=== PATIENT | male | born 1980 | race Caucasian/White ===

== ENCOUNTER 2024-10-24 19:54 | Emergency (ER) | payer BC, SELFPAY ==
--- NOTE | ~2024-10-24 | XR_ITS ---
EXAMINATION: XR chest 2V DATE: 10/24/2024 20:30 INDICATION: Pneumonia. TECHNIQUE: Frontal and lateral views of the chest were obtained. COMPARISON: None. FINDINGS: There is no pneumonia, pleural effusion, or pneumothorax. The heart size is normal. IMPRESSION: 1. No acute cardiopulmonary disease. Reviewed, dictated and finalized at location A. 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
--- NOTE | 2024-10-24 19:55 | ECG_ITS ---
Test Date: 2024-10-24 20:14:03 Measurements Intervals [place] Rate: 90 P: 49 [place]: 164 QRS: 14 QRSD: 79 T: 51 QT: 348 QTc: 428 Interpretive Statements SINUS RHYTHM No previous ECG available for comparison Electronically Signed On 10-25-2024 15:53:43 LDR NURSE by Manish Queen M.D.
[2024-10-24 20:01] VITALS: BP 118/75; PULSE 74; RESP 20; TEMP 37.2; O2SAT 98
[2024-10-24 21:03] LABS: Influenza A QL RT-PCR Negative (Negative); Influenza B QL RT-PCR Negative (Negative); RSV RNA, RT-PCR Negative (Negative); SARS-CoV-2 RNA PCR Negative (Negative)
[2024-10-24 23:23] VITALS: BP 107/80; PULSE 67; PULSE 77; RESP 18; O2SAT 96
[2024-10-25 00:48] VITALS: BP 102/78; PULSE 75; RESP 17; O2SAT 95
--- OUTSIDE RECORDS SUMMARY | 2024-10-25 01:02 | XMS_ITS ---
Author Organization [facility] Address [facility] [address] [facility] [address] [place] [address] Care Team Providers Care Installer Molding And Trim Name Role Phone [email or web address] Unavailable [phone] Medications Medication SIG (Take, Route, Fr equency, Duration) Notes Start Date End Date Status Sertraline HCl 100 MG 0.5 tablet once a day for 7 days, 1 tablet once a day for 7 days, 1.5 tablets once a day for 7 days, 2 tablets once a day for 7 days Oral for 28 days Active Social History Sex Assigned At : Social History Observation Description Sex Assigned At Male Encounters Encounter Location Date Provider Diagnosis [facility] [place] [id number] [facility] [address] [address] 10/05/2024 [facility] MIRNA (generalized anxiety disorder) F41.1 Assessments Encounter Date Diagnosis (ICD Code) Assessment Notes Treatment Notes Treatment Clinical Notes Section Notes 10/05/2024 MIRNA (generalized anxiety disorder) (ICD-10 - F41.1) Plan Of Treatment Medication Medication Name Sig Start Date Stop Date Notes Sertraline HCl 100 MG 0.5 tablet once a day for 7 days, 1 tablet once a day for 7 days, 1.5 tablets once a day for 7 days, 2 tablets once a day for 7 days Oral for 28 days Next Appt Details Provider Name:Ofelia miller, 11/22/2024 09:00:00 AM, 0054 [facility] [address], [place], [address], Progress Notes * LYLY VERONICA:1980 (44 yo M)Acc No.[id number]:10/05/2024 Patient:CHILO THAPA :1980???Age:44 Y???Sex:Male Address:[facility] [address], [place], [address] * Refills? Refill Sertraline HCl Tablet, 100 MG, Oral, 35 tablet, 0.5 tablet once a day for 7 days, 1 tablet once a day for 7 days, 1.5 tablets once a day for 7 days, 2 tablets once a day for 7 days, 28 days, Refills=0 * true * Date:? Generated for Nat buckley/Sharron/Sueitting on:?10/25/2024 01:02 AM PARALEGAL LEGAL SECRETARY
--- OUTSIDE RECORDS SUMMARY | 2024-10-25 01:03 | XMS_ITS | Data Portability ---
Author Organization [facility] SUZYJeni Address [address] [place] [address] Assessment No assessment recorded. Plan of Treatment Reminders Order Date Submit Date Provider Last Modified By Organization Details Last Modified Time Details Appointments None recorded. Lab lipid panel, serum 2018 019 [facility], [address] [place] [address], [address], [place], [address], 9 06:08:08 CMP, serum or plasma 2018 019 [facility], [address] [place] [address], [address], [place], [address], 9 06:08:08 TSH, ultra-sens itive, serum 2018 019 [facility], [address] [place] [address], [address], [place], [address], 9 06:08:09 CBC w/ auto diff 2018 019 [facility], [address] [place] [address], [address], [place], [address], 9 06:08:07 Referral None recorded. Procedures None recorded. Surgeries None recorded. Imaging None recorded. Medication Orders sertraline 25 mg tablet 2018 019 debi 2 Not available 9 10:00:11 hydroxyzin e HCl 50 mg tablet 2018 019 INTERFACE Not available 9 11:56:28 sertraline 50 mg tablet 2018 019 [id number], [address] [place], [address], 9 10:07:23 hydroxyzin e HCl 50 mg tablet 2018 019 [facility], [address] [place], [address], 9 10:07:23 hydroxyzin e HCl 50 mg tablet 2019 020 INTERFACE [facility] [address] [place] [place], [address], 0 15:03:36 sertraline 50 mg tablet 2019 020 INTERFACE [facility] [address] [place], [address], 0 19:03:39 Patient TargetsNo targets recorded. Patient InstructionsNo instructions recorded. Reason for Referral None Reported. Results Created Date Observation Date Name Description Value Unit Range Abnormal Flag Note LastModifiedBy Organization Detail LastModifiedTime 11/01/19 19 11/01/2018 CBC w/ auto diff WBC 6.0 x10e3 /uL 3.4-10 .8 Not Available [facility] ([facility]) [address] [facility], [place], [address], 11/02/2018 06:08:07 11/01/19 19 11/01/2018 CBC w/ auto diff RBC 5.42 x10e6 /uL 4.14-5 .80 Not Available [facility] ([facility]) [address] [facility], [place], [address], 11/02/2018 06:08:07 11/01/19 19 11/01/2018 CBC w/ auto diff hemoglobin 17.1 g/dL 13.0-1 7.7 Not Available [facility] ([facility]) [address] [facility], [place], [address], 11/02/2018 06:08:07 11/01/19 19 11/01/2018 CBC w/ auto diff hematocrit 48.0 % 37.5-5 1.0 Not Available [facility] ([facility]) [address] [facility], [place], [address], 11/02/2018 06:08:07 11/01/19 19 11/01/2018 CBC w/ auto diff MCV 89 fL 79-97 Not Available [facility] ([facility]) [address] [facility], [place], [address], 11/02/2018 06:08:07 11/01/19 19 11/01/2018 CBC w/ auto diff MCH 31.5 pg 26.6-3 3.0 Not Available [facility] ([facility]) [address] [facility], [place], [address], 11/02/2018 06:08:07 11/01/19 19 11/01/2018 CBC w/ auto diff MCHC 35.6 g/dL 31.5-3 5.7 Not Available [facility] ([facility]) [address] [facility], [place], [address], 11/02/2018 06:08:07 11/01/19 19 11/01/2018 CBC w/ auto diff RDW 13.6 % 12.3-1 5.4 Not Available [facility] ([facility]) [address] [facility], [place], [address], 11/02/2018 06:08:07 11/01/1911/01/2018 CBC w/ auto diff platelets 339 x10e3 /uL 150-37 9 Not Available [facility] ([facility]) [address] [facility], [place], [address], 11/02/2018 06:08:07 11/01/19 19 11/01/2018 CBC w/ auto diff neutrophils 66 % not estab. Not Available [facility] ([facility]) [address] [facility], [place], [address], 11/02/2018 06:08:07 11/01/19 19 11/01/2018 CBC w/ auto diff lymphs 21 % not estab. Not Available [facility] ([facility]) [address] [facility], [place], [address], 11/02/2018 06:08:07 11/01/19 19 11/01/2018 CBC w/ auto diff monocytes 11 % not estab. Not Available [facility] ([facility]) [address] [facility] [place], [address], 11/02/2018 06:08:07 11/01/19 19 11/01/2018 CBC w/ auto diff eos 1 % not estab. Not Available [facility] ([facility]) [address] [facility], [place], [address], 11/02/2018 06:08:07 11/01/19 19 11/01/2018 CBC w/ auto diff basos 1 % not estab. Not Available [facility] ([facility]) [address] [facility], [place], [address], 11/02/2018 06:08:07 11/01/1911/01/2018 CBC w/ auto diff immature cells DIRECTOR FIXED INCOME Not Available [facility] ([facility]) [address] [place], [address], 11/02/2018 06:08:07 11/01/1911/01/2018 CBC w/ auto diff neutrophils (absolute) 3.9 x10e3 /uL 1.4-7. 0 Not Available [facility] ([facility]) [address] [place], [address], 11/02/2018 06:08:07 11/01/19 19 11/01/2018 CBC w/ auto diff lymphs (absolute) 1.3 x10e3 /uL 0.7-3. 1 Not Available [facility] ([facility]) [address] [facility], [place], [address], 11/02/2018 06:08:07 11/01/1911/01/2018 CBC w/ auto diff monocytes(ab solute) 0.7 x10e3 /uL 0.1-0. 9 Not Available [facility] ([facility]) [address] [facility], [place], [address], 11/02/2018 06:08:07 11/01/1911/01/2018 CBC w/ auto diff eos (absolute) 0.1 x10e3 /uL 0.0-0. 4 Not Available [facility] ([facility]) [address] [facility], [place], [address], 11/02/2018 06:08:07 11/01/1911/01/2018 CBC w/ auto diff baso (absolute) 0.0 x10e3 /uL 0.0-0. 2 Not Available [facility] ([facility]) [address] [facility], [place], [address], 11/02/2018 06:08:07 11/01/1911/01/2018 CBC w/ auto diff immature granulocytes 0 % not estab. Not Available [facility] ([facility]) [address] [facility], [place], [address], 11/02/2018 06:08:07 11/01/1911/01/2018 CBC w/ auto diff immature grans (abs) 0.0 x10e3 /uL 0.0-0. 1 Not Available [facility] ([facility]) [address] [facility] [place], [address], 11/02/2018 06:08:07 11/01/1911/01/2018 CBC w/ auto diff NRBC DIRECTOR FIXED INCOME Not Available [facility] ([facility]) [address] [facility], [place], [address], 11/02/2018 06:08:07 11/01/1911/01/2018 CBC w/ auto diff hematology comments: DIRECTOR FIXED INCOME Not Available [facility] ([facility]) [address] [place], [address], 11/02/2018 06:08:07 11/01/1911/01/2018 CMP, serum or plasm a calcium 9.7 mg/dL 8.7-10 .2 Not Available [facility] ([facility]) [address] [facility] [place], [address], 11/02/2018 06:08:08 11/01/1911/02/2018 CMP, serum or plasm a glucose 108 mg/dL 65-99 above high normal Not Available [facility] ([facility]) [address] [facility] [place], [address], 11/02/2018 06:08:08 11/01/1911/02/2018 CMP, serum or plasm a BUN 16 mg/dL 6-24 Not Available [facility] ([facility]) [address] [facility] [place], [address], 11/02/2018 06:08:08 11/01/1911/02/2018 CMP, serum or plasm a creatinine 1.33 mg/dL 0.76-1 .27 above high normal Not Available [facility] ([facility]) [address] [facility] [place], [address], 11/02/2018 06:08:08 11/01/1911/02/2018 CMP, serum or plasm a eGFR if nonafricn AM 66 mL/mi n/1.7 3 >59 Not Available [facility] ([facility]) [address] [facility] [place], [address], 11/02/2018 06:08:08 11/01/1911/02/2018 CMP, serum or plasm a eGFR if africn AM 77 mL/mi n/1.7 3 >59 Not Available [facility] ([facility]) [address] [place], [address], 11/02/2018 06:08:08 11/01/1911/02/2018 CMP, serum or plasm a BUN/creatini ne ratio 12 9-20 Not Available [facility] ([facility]) [address] [facility] [place], [address], 11/02/2018 06:08:08 11/01/1911/02/2018 CMP, serum or plasm a sodium 140 mmol/ L 134-14 4 Not Available [facility] ([facility]) [address] [facility] [place], [address], 11/02/2018 06:08:08 11/01/1911/02/2018 CMP, serum or plasm a potassium 5.0 mmol/ L 3.5-5. 2 Not Available [facility] ([facility]) [address] [place], [address], 11/02/2018 06:08:08 11/01/1911/02/2018 CMP, serum or plasm a chloride 101 mmol/ L 96-106 Not Available [facility] ([facility]) [address] [facility] [place], [address], 11/02/2018 06:08:08 11/01/1911/02/2018 CMP, serum or plasm a carbon dioxide, total 26 mmol/ L 20-29 Not Available [facility] ([facility]) [address] [place], [address], 11/02/2018 06:08:08 11/01/1911/02/2018 CMP, serum or plasm a protein, total 7.2 g/dL 6.0-8. 5 Not Available [facility] ([facility]) [address] [place], [address], 11/02/2018 06:08:08 11/01/1911/02/2018 CMP, serum or plasm a albumin 4.7 g/dL 3.5-5. 5 Not Available [facility] ([facility] [address] [facility] [place], [address], 11/02/2018 06:08:08 11/01/1911/02/2018 CMP, serum or plasm a globulin, total 2.5 g/dL 1.5-4. 5 Not Available [facility] ([facility] [address] [place] [place], [address], 11/02/2018 06:08:08 11/01/1911/02/2018 CMP, serum or plasm a A/G ratio 1.9 1.2-2. 2 Not Available [facility] ([facility] [address] [place], [address], 11/02/2018 06:08:08 11/01/1911/02/2018 CMP, serum or plasm a bilirubin, total 0.5 mg/dL 0.0-1. 2 Not Available [facility] ([facility] [address] [facility] [place], [address], 11/02/2018 06:08:08 11/01/1911/02/2018 CMP, serum or plasm a alkaline phosphatase 86 IU/L 39-117 Not Available [facility] ([facility] [address] [facility] [place], [address], 11/02/2018 06:08:08 11/01/1911/02/2018 CMP, serum or plasm a AST (SGOT) 22 IU/L 0-40 Not Available [facility] ([facility] [address] [facility] [place], [address], 11/02/2018 06:08:08 11/01/1911/02/2018 CMP, serum or plasm a ALT (SGPT) 31 IU/L 0-44 Not Available [facility] ([facility] [address] [facility] [place], [address], 11/02/2018 06:08:08 11/01/192019 lipid panel , serum cholesterol, total 185 mg/dL 100-19 9 Not Available [facility] ([facility]) [address] [place], [address], 11/02/2018 06:08:08 11/01/19 19 11/02/2018 lipid panel , serum triglyceride s 115 mg/dL 0-149 Not Available [facility] ([facility]) [address] [place], [address], 11/02/2018 06:08:08 11/01/1911/02/2018 lipid panel , serum HDL cholesterol 49 mg/dL >39 Not Available [facility] ([facility]) [address] [place], [address], 11/02/2018 06:08:08 11/01/1911/02/2018 lipid panel , serum VLDL cholesterol linda 23 mg/dL 5-40 Not Available [facility] ([facility]) [address] [place], [address], 11/02/2018 06:08:08 11/01/1911/02/2018 lipid panel , serum LDL cholesterol calc 113 mg/dL 0-99 above high normal Not Available [facility] ([facility]) [address] [place], [address], 11/02/2018 06:08:08 11/01/1911/02/2018 lipid panel , serum comment: DIRECTOR FIXED INCOME Not Available [facility] ([facility]) [address] [place], [address], 11/02/2018 06:08:08 11/01/1911/02/2018 lipid panel , serum T. chol/HDL ratio 3.8 ratio 0.0-5. 0 T. Chol/ HDL Ratio Men Women 1/2 Avg.R isk 3.4 3.3 Avg.R isk 5.0 4.4 2X Avg.R isk 9.6 7.1 3X Avg.R isk 23.4 11.0 Not Available [facility] ([facility]) [address] [facility], [place], [address], 11/02/2018 06:08:08 11/01/1911/02/2018 TSH, ultra -sens itive , serum TSH 0.729 uIU/m L 0.450- 4.500 Not Available [facility] ([facility]) [address] [facility], [place], [address], 11/02/2018 06:08:09 11/01/1911/03/2018 HbA1c (hemo globi n A1c), blood hemoglobin A1C 5.3 % 4.8-5. 6 Predi abete s: 5.7 - 6.4 Diabe genoveva: >6.4 Glyce kerri contr ol for adult s with diabe genoveva: <7.0 Not Available [facility] ([facility]) [address] [facility], [place], [address], 11/03/2018 12:17:40 11/01/1911/03/2018 almas en autho rizat ion written authorizatio n Marjan t Almas en Autho rizat ion Recei ambar. Autho rizat ion recei ambar from JORGE LUIS CHENG MA 11-03 Logge d by Sadiq Wheatley n Not Available [facility] ([facility]) [address] [facility], [place], [address], 11/03/2018 12:17:40 Result Notes None recorded. Problems Name Problem SNOMED Code Status Onset Date Resolution Date Notes Provider Name and Address Organization Details Recorded Time Mixed anxiety and depressive disorder 862316668 Active 019 MELODY Kunz Attn: Radha g,[address] [facility], [place], [address], [facility] 9 21:09:09 Problem Notes None recorded. Procedures Surgical History Date Name Laterality Status Provider Name and Address Organization Details Recorded Time 8 extraction of wisdom tooth completed Christianen Ram RN [facility] 11/01/2018 11:27:25 Imaging Results None recorded. Procedure Notes None recorded. Medical Equipment None Reported. Allergies No known drug allergies Medications Name Sig Start Date Stop Date Status Note LastModified by Organization Details LastModified Time hydroxyzine HCl 50 mg tablet TAKE 1 TABLET BY MOUTH EVERY 4 TO 6 HOURS NEEDED 2019 active Not Available Not Available Not Avai lable nortriptyline 10 mg capsule 11/01 completed Not Available Not Available Not Available sertraline 25 mg tablet Take 1 tablet every day by oral route. 12/05 completed Not Available Not Available Not Available sertraline 50 mg tablet TAKE 1 TABLET BY MOUTH EVERY DAY 2020 active Not Available Not Available Not Avai lable Vitals Date Recorded Oxygen saturation Oxygen saturation in Arterial blood by Pulse oximetry Provider Name and Address Organization Details Last Updated DateTime 11/01/2018 97 % 97 % Christianne Ram RN [facility] 11/01/2018 11:19:49 Date Recorded Heart rate Provider Name an d Address Organization Details Last Updated DateTime 11/01/2018 75 /min Christianne Ram RN [facility] 2018 11:19:55 Date Recorded Body height Provider Name an d Address Organization Details Last Updated DateTime 11/01/2018 177.8 cm Christianne Ram RN [facility] 2018 11:20:12 Date Recorded Body mass index (BMI) Body weight Provider Name and Address Organization Details Last Updated DateTime 11/01/2018 26.4 kg/m2 50935.75 g Christianne Ram RN [facility] 11/01/2018 11:20:25 Date Recorded Respiratory rate Provider Name a nd Address Organization Details Last Updated DateTime 11/01/2018 16 /min Christianne Ram RN [facility] 11/01/2018 11:20:32 Date Recorded Body height Provider Name an d Address Organization Details Last Updated DateTime 12/05/2018 177.8 cm Corinna Rivera MA [facility] 12/06/19 19 09:54:57 Date Recorded Body mass index (BMI) Body weight Provider Name and Address Organization Details Last Updated DateTime 12/05/2018 26.8 kg/m2 62540.77 g Corinna Rivera MA [facility] 12/05/2018 09:55:11 Date Recorded Oxygen saturation Oxygen saturation in Arterial blood by Pulse oximetry Provider Name and Address Organization Details Last Updated DateTime 12/05/2018 98 % 98 % Corinnabarbie MenjivarJOSE quigley [facility] 12/05/2018 09:55:19 Date Recorded Heart rate Provider Name an d Address Organization Details Last Updated DateTime 12/05/2018 80 /min Corinna Rivera MA [facility] 12/06/19 19 09:55:22 Date Recorded Body temperature Provider Name a nd Address Organization Details Last Updated DateTime 04/08/2020 98.6 [degF] Ifeoma Ling MA [facility] 04/08/20 20 14:26:41 Date Recorded Body weight Provider Name an d Address Organization Details Last Updated DateTime 04/08/2020 18546.51 g Ifeoma Ling JOSE [facility] 0 14:26:48 Date Recorded Systolic blood pressure Diastolic blood pressure Provider Name and Address Organization Details Last Updated DateTime 11/01/2018 134 mm[Hg] 92 mm[Hg] Christianne Ram RN [facility] 11/01/2018 11:20:05 Date Recorded Systolic blood pressure Diastolic blood pressure Provider Name and Address Organization Details Last Updated DateTime 12/05/2018 130 mm[Hg] 90 mm[Hg] Corinna Rivera MA [facility] 12/05/2018 09:56:58 Social History Question Answer Notes LastModified by Organizat ion Details LastModified Time Tobacco Smoking Status Never Smoker Christianne Ram RN null, [facility] 11/01/2018 11:25:56 What Is Your Level Of Alcohol Consumption? Occasional 1 Beer/week Information not available 11/01/2018 What Is Your Level Of Caffeine Consumption? Moderate Information not available 11/01/2018 What Was The Date Of Your Most Recent Tobacco Screening? 11/01/2018 Information not available 04/20/2019 Sex: Unknown Functional Status Question Answer Note LastModified by Organization D etails LastModified Time What is your exercise level? Moderate Information not available 11/01/2018 Mental Status None recorded. Family History Relationship Description Onset Age of this Age Resolved Age Notes LastModified by Organization Details LastModified Time Mother Aneurysm 42 cardia c jsmithrn Not available 11/01/2018 11:24:45 Father Alcohol abuse 60 [email or web address] Not available 2018 11:25:05 Father Cerebrovascu lar accident 60 [email or web address] Not available 01/2019 11:25:37 Medical History Condition Response Anxiety Disorder Y Depression Y Past Encounters Encounter ID Performer Location Encounter Start Date Encounter Closed Date Diagnosis/Indication Diagnosis SNOMED-CT Code Diagnosis ICD10 Code Diagnosis Note [id number] MELODY Kunz [facility] [address] [place] [address] 11/01/2018 10:52:58 11/02/2018 08:50:06 Mixed anxiety and depressive disorder 653316669 F41.8 continue with counseling May increase to 50 mg in one week if neededGAD 7 = 15PHQ9= 10 Hyperlipid emia screening 069322192 Z13.220 Adult [facility] th examination 770735057 Z00.00 Elevated blood-pressure reading without diagnosis of hypertension 555195201 R03.0 will monitor blood pressures at home and bring in with next visit. [id number] MELODY Kunz [facility] [address] [place] [address] 12/05/2018 09:47:43 12/06/2018 08:39:29 Mixed anxiety and depressive disorder 132213206 F41.8 continue with counseling MIRNA 7 = 2PHQ9= 1 [id number] MELODY Kunz [facility] [address] [place] [address] 04/08/2020 13:53:52 04/08/2020 16:10:25 Mixed anxiety and depressive disorder 879736430 F41.8 continue with counseling MIRNA 7 = 9PHQ9= 9RTC in 1 mo for follow up- I encourage you to follow-up with a counselor for further mental health support - Take medication as prescribed - Take medication at the same time every day and do not miss doses - Medication will take 2-3 weeks to reach full effect - Do not suddenly stop medication without consulting your provider first - Take time for yourself every day, get plenty of rest - Exercise can help elevate moods - If you do not have a good support system, talk to your provider about counseling options - Sometimes antidepres sarahi medication s can make suicidal thoughts worse. If you are experienci ng these thoughts you should report to the ER immediatel y - You can also call the suicide hotline at 6-612-000- 3949 Health Concerns Section Related Observation LastModified by Organization Detai ls LastModified Time None Recorded Concern Status LastModified by Organization Details LastModified Time None Recorded Advance Directives Directive None Recorded Payers Encounter Date Sequence Insurance Name Policy Number Policy Bernal Covered Member ID Bernal Member ID Guarantor Name 11/01/2018 1 [employer] [id number] Francis Sousa [id number] Francis Sousa 12/05/2018 1 [place] [id number] Francis Sousa [id number] Francis Sousa 04/08/2020 1 [place] [id number] Francis Sousa [id number] Francis Sousa Notes Date Note Type Note Provider Name and Address Organization Details Recorded Time 11/01/2018 text/html Anxiety/Depressi onRepo rted bypatient.Quality:symp toms worse during the day;mood worse;increased anxiety Severity:denies suicidal ideations; able to maintain relationships; does not interfere with activities of daily living Duration:started: (4 weeks); symptoms lasting over 2 weeks Onset/Timing:gradual Context:major life stressors;family problems;relationship stress; going thru divorce proceedings. Modifying Factors:counselling; started counseling 6 weeks ago goes 1-2x/week depending on stress level Associated Symptoms:no significant weight gain; maintaining functionality;weight loss (12 lbs);eating less;emotional lability;anxiety;depre ssion;grieving;insomni a;shortness of breath; feeling exhaustedNotes:Has a history of anxiety and depression. Does not really have any support he has lost his parents. His brother has alcoholism. Feels like counseling is helping. is keeping kids away from him. Going throug very difficult time now. MELODY Kunz Attn: Accounting,[address] [place], [address], [facility] 11/01/2018 21:17:44 12/05/2018 text/html Anxiety/Depressi onRepo rted bypatient.Quality:symp toms improved Severity:denies suicidal ideations; able to maintain relationships; does not interfere with activities of daily living Context:major life stressors;family problems Modifying Factors:counselling; medications as directed Associated Symptoms:denies homicidal ideations; no significant weight gain; no significant weight loss; no visual/auditory hallucinations; no delusions; no shortness of breath; mood good; no anxiety; no panic; no isolation; sleeping well; appetite good; energy good; maintaining functionalityNotes:Is feeling much better. Still seen counseling once a week. Things are better as far as the divorce. Voicing no concerns MELODY Kunz Attn: Accounting, [address] [place], [address], [facility] 12/05/2018 10:12:21 04/08/2020 text/html Anxiety/Depressi onRepo rted bypatient.Quality:symp toms improved Severity:denies suicidal ideations; able to maintain relationships; does not interfere with activities of daily living Context:major life stressors;family problems Modifying Factors:counselling; medications as directed Associated Symptoms:denies homicidal ideations; no significant weight gain; no significant weight loss; no visual/auditory hallucinations; no delusions; no shortness of breath; mood good; no panic; appetite good; energy good; maintaining functionality;anxiety; depression;insomnia;sl eep disturbances;low self-esteem;social withdrawalNotes:still doing counseling. Has a lot of personal issues going on. Dad was an alcoholic. Had bad childhood. Went through a divorce, ex moved to [facility]. Used to have kids every weekend, no he does not, having a hard time with that. Stopped zoloft a while back as he was feeling good.Generic HPI TemplateReported bypatient.Context:cynthia ent is healthy and exercises but anxiety has been amping up. Would like to discuss getting back on hydroxyzine MELODY Kunz Attn: Accounting,[address] [place], [address], [place] [facility] 04/08/2020 15:03:50
--- OUTSIDE RECORDS SUMMARY | 2024-10-25 01:03 | XMS_ITS | Referral Summary ---
Author Organization [facility] Address [address] [place] [id number] Care Team Providers Care Quality Associate Name Role Phone No, Physician Primary Care Provider [phone] Encounters Date Type Department Care Team Description 09/04/2024 5:15 PM MATERIAL EXPEDITOR Office Visit [facility] at [address] [address] Joceline Renee NP Acute cough (Primary Dx) from Last 3 Months Allergies No known active allergies Medications amLODIPine (NORVASC) 10 mg tablet Take 1 tablet (10 mg total) by mouth daily 30 tablet 11 2 Active sertraline (ZOLOFT) 100 mg tablet TAKE 1 TABLET BY MOUTH EVERY DAY FOR 90 DAYS 4 Active buPROPion XL (WELLBUTRIN XL) 150 mg 24 hr tablet daily Active benzonatate (TESSALON) 200 mg capsuleIndicati ons:Acute cough Take 1 capsule (200 mg total) by mouth 3 (three) times a day as needed for cough keep tessalon out of reach of children, especially children under the age of 10, due to possible serious risk such as if ingested by children under the age of 10. 30 capsule 4 Active Active Problems Problem Noted Date Diagnosed Date Acute non-recurrent pansinusitis 08/19/2022 Assessment & Plan (08/19/2022 1:27 PM MATERIAL EXPEDITOR): Due to length of illness we will treat with antibiotic, please complete the whole course of antibiotics-no leftovers. Prescription for antibiotics sent. Reviewed potential benefits and potential side effects of keflex Aware to complete full course of antibiotic. To continue otc medications. Discussed nasal saline rinses/neti pots. Discussed need to increase fluid intake. May use 1 teaspoon honey every 4 hours as needed for cough, encourage use of hot tea or hot water with honey. May use vicks vapo rub on chest and bottom of feet before bed. Cool mist humidifier in bedroom. Lots of water, rest and handwashing, no sharing cups or utensils. If symptoms worsen including but not limited to shortness of breath, chest pain and/or increasing pain please notify office or present to Emergency Department. Severe obstructive sleep apnea 11/18/2021 Hypertension 10/24/2021 Anxiety disorder 10/24/2021 Depression 10/24/2021 Social History Tobacco Use Types Packs/Day Years Used Date Smoking Tobacco: Never Smokeless Tobacco: Never Sex and Gender Information Value Date Recorded Sex Assigned at Not on file Legal Sex Male 10:39 AM MATERIAL EXPEDITOR Gender Identity Male 10/23/2021 7:19 PM MATERIAL EXPEDITOR Sexual Orientation Straight 10/23/2021 7: 19 PM MATERIAL EXPEDITOR Last Filed Vital Signs Vital Sign Reading Time Taken Comments Blood Pressure 122/84 09/04/2024 5:27 PM MATERIAL EXPEDITOR Pulse 77 09/04/2024 5:27 PM MATERIAL EXPEDITOR Temperature 37 ??C (98.6 ??F) 09/04/2024 5:27 PM MATERIAL EXPEDITOR Respiratory Rate 24 09/04/2024 5:27 PM MATERIAL EXPEDITOR Oxygen Saturation 97% 09/04/2024 5:27 PM MATERIAL EXPEDITOR Inhaled Oxygen Concentration - - Weight 100.2 kg (221 lb) 09/04/2024 5:27 PM MATERIAL EXPEDITOR Height 180.3 cm (5' 11 ) 10/16/2021 1:04 PM MATERIAL EXPEDITOR Body Mass Index 30.82 10/16/2021 1:04 PM MATERIAL EXPEDITOR Plan of Treatment Not on file Procedures Procedure Name Priority Date/Time Associated Diagnosis Comments POC INFLUENZA A/B, COVID-19 ANTIGEN Routine 09/04/2024 5:52 PM MATERIAL EXPEDITOR Acute cough from Last 3 Months Results * POC Influenza A/B, COVID-19 antigen (09/04/2024 5:52 PM MATERIAL EXPEDITOR) Influenza A Ag, POC Negative Negative [facility] Influenza B Ag, POC Negative Negative [facility] COVID-19 Ag POC Presumptive Negative Presumptive Negative, Invalid [facility] Nasal 09/04/2024 5:52 PM MATERIAL EXPEDITOR Joceline Renee NP POINT OF CARE TEST ORDERABLES F inal Result [facility] [address] [address] [place] [address], [facility] from Last 3 Months [place] [address] [employer] [facility] [place] [address] Care Teams Quality Associate Relationship Specialty Start Date End Date No, Physician PCP - General 10/16/21
--- OUTSIDE RECORDS SUMMARY | 2024-10-25 01:03 | XMS_ITS ---
Author Organization [facility] Address [address] [facility] [address] [facility] [address] [place] [address] Care Team Providers Care Plastics Repairer Name Role Phone [facility] Unavailable [phone] REASON FOR VISIT Other Social History Sex Assigned At : Social History Observation Description Sex Assigned At Male Encounters Encounter Location Date Provider Diagnosis [facility] [address] [facility] [address] [facility] [address] [place] [address] 10/05/2024 [facility] Plan Of Treatment Next Appt Details Provider Name:Ofelia miller, 11/22/2024 09:00:00 AM, [address], [facility] [address], [place], [address], Progress Notes * DAIJA VERONICAOB:1980 (44 yo M)Acc No.[id number]:10/05/2024 Patient:?CHILO VERONICA :1980???Age:44 Y???Sex:Male [place], [address] * true * Date:? Generated for Nat buckley/Sharron/eTransmitting on:?10/25/2024 01:03 AM LEARNING DISABILITIES SPECIALIST
--- OUTSIDE RECORDS SUMMARY | 2024-10-25 01:03 | XMS_ITS ---
Author Organization [facility] [address] [employer] Address [address] [place] [address] Care Team Providers Care Monitoring Manager Name Role Phone Ofelia Heart Unavailable [phone] Allergies No Known Allergies Results Component Value Reference Range Notes UDT Reviewed date:10/11/2024 03:57:25 PM Interpretation: Performing Lab: Notes/Report: THC N 0 - 50 ng/ml Cocaine N 0 - 300 ng/ml Amphetamine P 0 - 1000 ng/ml Buprenorphine (BUP) N 0 - 10 ng/ml Secobarbital (Bar) N 0 - 300 ng/ml Oxazepam (BZO) N 0 - 300 ng/ml 4-mcpfplbakj-8,3-tgjtaret-6,3-diphenylpyrrolidine (ARVIND P) N 0 - 300 ng/ml Methamphetamine (MET) N 0 - 1000 ng/ml Methylenedioxymethamphetamine (MDMA) N 0 - 500 ng/ml Morphine (MOP 300/[id number]) N 0 - 300 ng/ml Methadone (MTD) N 0 - 300 ng/ml Phencyclidine (PCP) N 0 - 25 ng/ml Propoxyphene (PPX) N 0 - 300 ng/ml Nortriptyline (TCA) N 0 - 1000 ng/ml Oxycodone N 0 - 300 ng/ml REASON FOR VISIT UDT done, Follow-up for medication management Medications Medication SIG (Take, Route, Frequency, Duration) Notes Start Date End Date Status Lisdexamfetamine Dimesylate 30 MG 1 capsule in the morning Orally Once a day for 30 days Dc 20 mg 10/11/2024 Active Propranolol HCl 10 MG 1 tablet Orally tw ice a day for 30 days 10/11/2024 Active Social History Tobacco Use: Social History Observation Description Date Details (start date - stop date) Never Smoker NA - NA Sex Assigned At : Social History Observation Description Sex Assigned At Male Tobacco Control (Standard) Question Answer Notes Tobacco use: Nonsmoker AUDIT-C (Standard) Question Answer Notes Interpretation Negative Did you have a drink contain ing alcohol in the past year? Yes How often did you have six o r more drinks on one occasion in the past year? Less than monthly (1 point) How many drinks did you have on a typical day when you were drinking in the past year? 3 or 4 drinks (1 point) How often did you have a dri nk containing alcohol in the past year? Monthly or less (1 point) Section Notes: Lives in [place] with aron rlfriend. He has 3 kids and she has 2. Shared custody of his kids. Has older brother. 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 Denied hx of committing assault, property damage, etc., legal problems, incarceration. Vital Signs Blood pressure systolic 115 mm Hg 10/11/19 25 Blood pressure diastolic 81 mm Hg 025 Heart Rate 80 /min 10/11/2024 Height 71.00 in 10/11/2024 Weight 213 lbs 10/11/2024 BMI 29.7 kg/m2 10/11/2024 Height-cm 180.34 cm 10/11/2024 Weight-kg 96.62 kg 10/11/2024 Encounters Encounter Location Date Provider Diagnosis [place] [address] [address] 10/11/2024 Ofelia Heart MIRNA (generalized anxiety disorder) F41.1 ; ADHD (attention deficit hyperactivity disorder), combined type F90.2 ; Post traumatic stress disorder (PTSD) F43.10 and Major depressive disorder, recurrent, mild F33.0 Assessments Encounter Date Diagnosis (ICD Code) Assessment Notes Treatment Notes Treatment Clinical Notes Section Notes 10/11/2024 MIRNA (generalized anxiety disorder) (ICD-10 - F41.1) Anxiety - Reports ongoing anxiety, particularly in high-stress situations - Anxiety is manageable but still present Plan: - Discontinue sertraline 50 mg due to sexual side effects - Prescribe propranolol 10 mg twice a day as needed for situational anxiety - Monitor for effectiveness and side effects ADHD - Reports improvement in focus and productivity with current medication Plan: - Increase Vyvanse dosage to optimize benefits - Monitor for potential increase in anxiety and appetite changes Mood - Denies current depressive symptoms and reports overall good mood Plan: - No changes to current treatment plan - Continue to monitor mood during follow-up visits Sleep - Reports good sleep quality, with occasional vivid dreams but not disturbing Plan: - No changes to current treatment plan - Encourage patient to report any distressing changes in sleep or dreams Sexual dysfunction - Reports erectile dysfunction and problems ejaculating, likely related to sertraline use Plan: - Discontinue sertraline 50 mg - Monitor for improvement in sexual function after discontinuation - Consider further evaluation if no improvement Blood pressure - Within normal limits during the visit Plan: - No changes to current treatment plan - Continue to monitor during follow-up visits Follow-up in 6 weeks to assess effectiveness of new treatment plan and monitor for side effects or concerns 10/11/2024 ADHD (attention deficit hyperactivity disorder), combined type (ICD-10 - F90.2) Anxiety - Reports ongoing anxiety, particularly in high-stress situations - Anxiety is manageable but still present Plan: - Discontinue sertraline 50 mg due to sexual side effects - Prescribe propranolol 10 mg twice a day as needed for situational anxiety - Monitor for effectiveness and side effects ADHD - Reports improvement in focus and productivity with current medication Plan: - Increase Vyvanse dosage to optimize benefits - Monitor for potential increase in anxiety and appetite changes Mood - Denies current depressive symptoms and reports overall good mood Plan: - No changes to current treatment plan - Continue to monitor mood during follow-up visits Sleep - Reports good sleep quality, with occasional vivid dreams but not disturbing Plan: - No changes to current treatment plan - Encourage patient to report any distressing changes in sleep or dreams Sexual dysfunction - Reports erectile dysfunction and problems ejaculating, likely related to sertraline use Plan: - Discontinue sertraline 50 mg - Monitor for improvement in sexual function after discontinuation - Consider further evaluation if no improvement Blood pressure - Within normal limits during the visit Plan: - No changes to current treatment plan - Continue to monitor during follow-up visits Follow-up in 6 weeks to assess effectiveness of new treatment plan and monitor for side effects or concerns 10/11/2024 Post traumatic stress disorder (PTSD) (ICD-10 - F43.10) Anxiety - Reports ongoing anxiety, particularly in high-stress situations - Anxiety is manageable but still present Plan: - Discontinue sertraline 50 mg due to sexual side effects - Prescribe propranolol 10 mg twice a day as needed for situational anxiety - Monitor for effectiveness and side effects ADHD - Reports improvement in focus and productivity with current medication Plan: - Increase Vyvanse dosage to optimize benefits - Monitor for potential increase in anxiety and appetite changes Mood - Denies current depressive symptoms and reports overall good mood Plan: - No changes to current treatment plan - Continue to monitor mood during follow-up visits Sleep - Reports good sleep quality, with occasional vivid dreams but not disturbing Plan: - No changes to current treatment plan - Encourage patient to report any distressing changes in sleep or dreams Sexual dysfunction - Reports erectile dysfunction and problems ejaculating, likely related to sertraline use Plan: - Discontinue sertraline 50 mg - Monitor for improvement in sexual function after discontinuation - Consider further evaluation if no improvement Blood pressure - Within normal limits during the visit Plan: - No changes to current treatment plan - Continue to monitor during follow-up visits Follow-up in 6 weeks to assess effectiveness of new treatment plan and monitor for side effects or concerns 10/11/2024 Major depressive disorder, recurrent, mild (ICD-10 - F33.0) Anxiety - Reports ongoing anxiety, particularly in high-stress situations - Anxiety is manageable but still present Plan: - Discontinue sertraline 50 mg due to sexual side effects - Prescribe propranolol 10 mg twice a day as needed for situational anxiety - Monitor for effectiveness and side effects ADHD - Reports improvement in focus and productivity with current medication Plan: - Increase Vyvanse dosage to optimize benefits - Monitor for potential increase in anxiety and appetite changes Mood - Denies current depressive symptoms and reports overall good mood Plan: - No changes to current treatment plan - Continue to monitor mood during follow-up visits Sleep - Reports good sleep quality, with occasional vivid dreams but not disturbing Plan: - No changes to current treatment plan - Encourage patient to report any distressing changes in sleep or dreams Sexual dysfunction - Reports erectile dysfunction and problems ejaculating, likely related to sertraline use Plan: - Discontinue sertraline 50 mg - Monitor for improvement in sexual function after discontinuation - Consider further evaluation if no improvement Blood pressure - Within normal limits during the visit Plan: - No changes to current treatment plan - Continue to monitor during follow-up visits Follow-up in 6 weeks to assess effectiveness of new treatment plan and monitor for side effects or concerns Plan Of Treatment Medication Medication Name Sig Start Date Stop Date Notes Lisdexamfetamine Dimesylate 20 MG 1 capsule in the morning Orally Once a day 09/13/2024 Sertraline HCl 100 MG 0.5 tablet once a day for 7 days, 1 tablet once a day for 7 days, 1.5 tablets once a day for 7 days, 2 tablets once a day for 7 days Oral Lisdexamfetamine Dimesylate 30 MG 1 capsule in the morning Orally Once a day for 30 days 10/11/2024 Dc 20 mg Propranolol HCl 10 MG 1 tablet Orally tw ice a day for 30 days 10/11/2024 Next Appt Details Provider Name:Ofelia miller, 11/22/2024 09:00:00 AM, [address] [place] [address], [facility] [address], [place], [address], Progress Notes * DAIJA VERONICAOB:1980 (44 yo M)Acc No.[id number]:10/11/2024 Patient:?CHILO VERONICA Provider:?Ofelia Heart :1980???Age:44 Y???Sex:Male Ivan e:10/11/2024 Address:[address] [place] [address] , [facility] Subjective: * Chief Complaints: * ???1. UDT done. 2. Follow-up for medication management. * HPI: ???History of Presenting Problem:? Pt was seen today and Urine drug screen was done This note is transcribed using speech recognition software. It is a reflection of a visit with the patient. It might have some inaccuracy, including medication names and transcribing errors, though efforts have been made to correct them. 44 y/o male, 2016-in committed relationship-Toby, He has 3 kids and she has 2; Shared custody of his kids, starting a new [employer] business?here to follow up r/t depression, anxiety, panic attacks.? Anxiety from starting a new business, dealig with some changes which as been stressful. Financial stressors around new business.? ongoing notes: DUI oct 2020, but usually not a big drinker;?? substance:?caffeine: 1-2 sodas a day;?ETOH: minimal;?THC: none This note is transcribed using speech recognition software. It is a reflection of a visit with the patient. It might have some inaccuracy, including medication names and transcribing errors, though efforts have been made to correct them. Patient consented to the use of [employer] to record and transcribe notes during this visit. Patient reports ongoing anxiety, though it is currently manageable. ADHD medication is working well, and he is tolerating the lower dose. Experiencing situational anxiety related to starting a new business, which involves overwhelming work hours and financial concerns. Mood has been good overall, despite recent life stressors including divorce and caring for three children. Reports sexual side effects, including decreased libido and erectile dysfunction, attributed to current medication regimen. Has been taking half the prescribed dose of sertraline (50 mg) for less than a week. Sleep has not been an issue; staying up more than usual. Denies current depression but acknowledges history of depressive episodes. Experiences intermittent anxiety, particularly in high-energy, high-anxiety situations. Energy levels are reported as normal, with no fatigue or lack of energy noted. Starting a new business in [employer], working with [employer]. with three children. Attending therapy. Experiencing vivid dreams, but not disturbing. No issues falling asleep or staying asleep. Energy levels fine, not fatigued. ???Depression Screening:?MIRNA-7 (2018 Edition)?Feeling nervous, anxious, or on edge?Several days,?Not being able to stop or control worrying?Several days,?Worrying too much about different things?Several days,?Trouble relaxing?Several days,?Being so restless that it is hard to sit still?Several days,?Becoming easily annoyed or irritable?Several days,?Feeling afraid as if something awful might happen?Several days, If you checked any problems, how difficult have they made it for you to do your work, take care of things at home, or get along with other people??Somewhat difficult,?Interpretation of Total?(5 to 9) Mild.?[place]-Suicide Severity Rating Scale:?Suicide Risk (CSRS-screener)?in the past one month Have you wished you were or wished you could go to sleep and not wake up??No,?in the past one month Have you actually had any thoughts of killing yourself??No.?Depression screening:?PHQ-9?Little interest or pleasure in doing things?Several days,?Feeling down, depressed, or hopeless?Several days,?Trouble falling or staying asleep, or sleeping too much?Several days,?Feeling tired or having little energy?Several days,?Poor appetite or overeating?Several days,?Feeling bad about yourself or that you are a failure, or have let yourself or your family down?Several days,?Trouble concentrating on things, such as reading the newspaper or watching television?Several days,?Moving or speaking so slowly that other people could have noticed; or the opposite, being so fidgety or restless that you have been moving around a lot more than usual?Several days,?Thoughts that you would be better off or of hurting yourself in some way?Not at all,?Total Score?8,?Interpretation?Mild Depression.?Intervention?Depression Screening Findings?Positve,?Follow-Up for Depression?Mental health treatment assessment, Patient follow-up to return when and if necessary,?Suicide Risk Assessment Performed?10/11/2024 ,?Additional Evaluation for Depression?Psychiatric interview and evaluation,?Name of the standardized tool used for adult depression screening:?Patient Health Questionnaire (PHQ-9).? * ROS:?General / Constitutional:?Patient denies?fatigue, headache,?lightheadedness.?Cardiovascular:?Patient denies?chest pain, dizziness, palpitations.?Gastrointestinal:?Patient denies?nausea, vomiting, change in bowel habits.?Neurologic:?Patient denies?confusion, tic, tremor.?Psychiatric:?Patient denies?suicidal thoughts, auditory / visual hallucinations, delusions, psychosis, involuntary movements.?See HPI. * Medical History:?Problems: G eneralized anxiety disorder, Mild recurrent major depression, Obstructive sleep apnea syndrome, Panic attack, Recurrent major depression in partial remission, Past Psychiatric History: Anxiety Disorder,PTSD. * Surgical History:?Denies Pas t Surgical History. * Hospitalization/Major Diagno stic Procedure:?Denies Past Hospitalization. * Family History:?Father: Depr essive disorder , Alcohol abuse .?Brother: Alcohol abuse .? Denied family hx of attempted or completed suicide. * Social History:?Tobacco Use:?Tobacco Control (Standard)?Tobacco use:?Nonsmoker.?Migrated Social History:?Migrated Social History: Alcohol Intake: Occasional 06/23/2023,Tobacco Years: Never smoker 06/23/2023. ???Drug/Alcohol:?Drugs?Have you used drugs other than those for medical reasons in the past 12 months??No.?AUDIT-C (Standard)?Did you have a drink containing alcohol in the past year??Yes,?How often did you have six or more drinks on one occasion in the past year??Less than monthly (1 point),?How many drinks did you have on a typical day when you were drinking in the past year??3 or 4 drinks (1 point),?How often did you have a drink containing alcohol in the past year??Monthly or less (1 point),?Interpretation?Negative.?Miscellaneous:?Advance Care Planning?Are you your own decision-maker?Yes,?Do you have Power of Gameplay Programmer for Health or Medical??Yes,?Do you have a power of business attorney for health??No,?Do you have power of business attorney for Medical ??No,?If yes, then please bring the POA paperwork so that we can upload it.?No.?Social History:?Household?Marital Status:?Not Answered,?Number of Adults in household:?2,?Number of Children in Household:?5,?Level of Education:?Not Finished College.?Lives in [place] with girlfriend. He has 3 kids and she has 2. Shared custody of his kids. Has older brother. 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 Denied hx of committing assault, property damage, etc., legal problems, incarceration. * Medications:?Taking Lisdexam fetamine Dimesylate 20 MG Capsule 1 capsule in the morning Orally Once a day , Taking Sertraline HCl 100 MG Tablet 0.5 tablet once a day for 7 days, 1 tablet once a day for 7 days, 1.5 tablets once a day for 7 days, 2 tablets once a day for 7 days Oral , Medication List reviewed and reconciled with the patient * Allergies:?N.K.D.A. Objective: * Vitals:?BP:115/81mm Hg, HR:8 0/min, Wt:213lbs, Wt-k.62 kg, Ht: 71.00 in, Ht- cm: 180.34 cm, BMI:29.7Index, Body Surface Area: 2.2. * Examination: ???Psychiatry: ?Appearance:?alert, groomed,?appears well rested. In no acute distress.?Abnormal body movements:?none noted.?Affect / mood:?full range, appropriate.?Attention:?normal in conversation.?Attitude:?cooperative, open-minded with collaborative approach.?Homicidal ideation:?none.?Suicidal ideation:?none.?Memory status:?no impairment noted.?Degree of awareness of surroundings:?within normal limits.?Delusions:?no.?Hallucinations:?no.?Insight:?good.?Intellectual functioning:?no impairment noted.?Judgement:?good.?Orientation:?awake, alert and oriented x 3.?Psychomotor activity:?within normal range.?Speech / language:?clear and coherent, appropriate pitch/modulation, normal rate, volume, and articulation (RVR), proper grammar used.?Thought content:?appropriate.?Thought process:?intact.?General Examination: ???Mood: Reports ongoing anxiety but describes it as manageable. Mood is reported as good. Thought Content: Able to focus and accomplish more due to medication. Expresses feeling overwhelmed due to new business responsibilities. No disturbances in sleep reported, although mentions vivid dreams. Physical Examination: Blood pressure is documented as good. No specific physical examination findings are documented other than blood pressure. Assessment: * Assessment: 1.?MIRNA (generalized anxiety disorder) - F41.1 (Primary)???2.?ADHD (attention deficit hyperactivity disorder), combined type - F90.2???3.?Post traumatic stress disorder (PTSD) - F43.10???4.?Major depressive disorder, recurrent, mild - F33.0??? Anxiety - Reports ongoing anxiety, particularly in high-stress situations - Anxiety is manageable but still present Plan: - Discontinue sertraline 50 mg due to sexual side effects - Prescribe propranolol 10 mg twice a day as needed for situational anxiety - Monitor for effectiveness and side effects ADHD - Reports improvement in focus and productivity with current medication Plan: - Increase Vyvanse dosage to optimize benefits - Monitor for potential increase in anxiety and appetite changes Mood - Denies current depressive symptoms and reports overall good mood Plan: - No changes to current treatment plan - Continue to monitor mood during follow-up visits Sleep - Reports good sleep quality, with occasional vivid dreams but not disturbing Plan: - No changes to current treatment plan - Encourage patient to report any distressing changes in sleep or dreams Sexual dysfunction - Reports erectile dysfunction and problems ejaculating, likely related to sertraline use Plan: - Discontinue sertraline 50 mg - Monitor for improvement in sexual function after discontinuation - Consider further evaluation if no improvement Blood pressure - Within normal limits during the visit Plan: - No changes to current treatment plan - Continue to monitor during follow-up visits Follow-up in 6 weeks to assess effectiveness of new treatment plan and monitor for side effects or concerns Plan: * Treatment: 2.?ADHD (attention deficit h yperactivity disorder), combined type? Stop Lisdexamfetamine Dimesylate Capsule, 20 MG, 1 capsule in the morning, Orally, Once a day;?Start Lisdexamfetamine Dimesylate Capsule, 30 MG, 1 capsule in the morning, Orally, Once a day, 30 days, 30 Capsule, Refills 0, Notes to Pharmacist: Dc 20 mg.?? * Labs:? * ?Lab: UDT (Collection Da te & Time - 10/11/2024) ? Value Reference Range ?THC N 0 - 50 ng/ml * ?Cocaine N 0 - 300 ng/ml * ?Amphetamine P 0 - 1000 ng /ml * ?Buprenorphine (BUP) N 0 - 10 ng/ml * ?Secobarbital (Bar) N 0 - 300 ng/ml * ?Oxazepam (BZO) N 0 - 300 ng/ml * ?3-itwntwjnmp-0,7-yogqkvzr-1,3-diphenylpyrrolidine (EDDP) N 0 - 300 ng/ml * ?Methamphetamine (MET) N 0 - 1000 ng/ml * ?Methylenedioxymethamphetamine (MDMA) N 0 - 500 ng/ml * ?Morphine (MOP 300/[id number]) N 0 - 300 ng/ml * ?Methadone (MTD) N 0 - 300 ng/ml * ?Phencyclidine (PCP) N 0 - 25 ng/ml * ?Propoxyphene (PPX) N 0 - 300 ng/ml * ?Nortriptyline (TCA) N 0 - 1000 ng/ml * ?Oxycodone N 0 - 300 ng/ml * Procedure Codes:?11819 DRUG TST PRSMV READ INSTRMNT ASSTD DIR OPT OBS, 31363 BEHAV ASSMT W/SCORE & DOCD/STAND INSTRUMENT, G2211 VISIT COMPLEXITY INHERENT TO ONGOING CARE RELATED TO A PATIENT'S SINGLE, SERIOUS CONDITION OR A COMPLEX CONDITION * Preventive Medicine:? ??Counseling:?Patient Education:?General Education?Assessment and plan reviewed with patient.Educated on diagnoses and recommended treatment options.Educated on risks/benefits of medications, including reason for medications and potential side effects. Alternatives and expected course without treatment reviewed.Education given regarding compliance with medication and expectations regarding adherence to or inconsistent usage of medication.Educated that it can take weeks to see full therapeutic benefits of psychotropic medications and encouraged to trust the process. Educated on good sleep hygiene and importance of adequate sleep on both mental and overall health and well-being. Patient asked appropriate questions, verbalized understanding, and agreed to the recommended treatment and to continue to be followed.Encouraged to reach out if problems, questions, or concerns arise.Educated on suicide hotlines, resources, and safety should suicidal thoughts occur..? * Billing Information: * Visit Code:? 84086 OFFICE OUTPATIENT VISIT 25 MINUTES DETAILED HISTORY AND EXAM/MODERATE MEDICAL DECISION MAKING. * Procedure Codes:? 77286 DRUG TST PRSMV READ INSTRMNT ASSTD DIR OPT OBS. 74275 BEHAV ASSMT W/SCORE & DOCD/STAND INSTRUMENT. G2211 VISIT COMPLEXITY INHERENT TO ONGOING CARE RELATED TO A PATIENT'S SINGLE, SERIOUS CONDITION OR A COMPLEX CONDITION. * Electronic signature of Ricardo Heart on 10/25/2024 at 01:02 AM CUSTOMER EXPERIENCE LEADER Sign off status: Pending * Provider:?Ofelia Heart Date:? 025 Generated for Nat buckley/Sharron/Herson on:?10/25/2024 01:02 AM CUSTOMER EXPERIENCE LEADER History and Physical Notes * HPI (History of Present Illness) Category Sub-Category Detail Notes Category Not es Depression screening PHQ-9 Little inte rest or pleasure in doing things: Several days Feeling down, depressed, or hopeless: Se veral days Trouble falling or staying asleep, or sl eeping too much: Several days Feeling tired or having little energy: S everal days Poor appetite or overeating: Several day s Feeling bad about yourself o r that you are a failure, or have let yourself or your family down: Several days Trouble concentrating on thi ngs, such as reading the newspaper or watching television: Several days Moving or speaking so slowly that other people could have noticed; or the opposite, being so fidgety or restless that you have been moving around a lot more than usual: Several days Thoughts that you would be b lita off or of hurting yourself in some way: Not at all Total Score: 8 Interpretation: Mild Depression Intervention Depression Screening Findings: P ositve Follow-Up for Depression: [facility] treatment assessment, Patient follow-up to return when and if necessary Suicide Risk Assessment Performed: 10/11 Additional Evaluation for De pression: Psychiatric interview and evaluation Name of the standardized too l used for adult depression screening:: Patient Health Questionnaire (PHQ-9) Depression Screening MIRNA-7 (2018 Edition) Feelin g nervous, anxious, or on edge: Several days Not being able to stop or control worryi ng: Several days Worrying too much about different things : Several days Trouble relaxing: Several days Being so restless that it is hard to sit still: Several days Becoming easily annoyed or irritable: Se veral days Feeling afraid as if something awful beau ht happen: Several days If you checked any problems, how difficult have they made it for you to do your work, take care of things at home, or get along with other people?: Somewhat difficult Interpretation of Total: (5 to 9) Mild [place]-Suicide Severity Rating Scale Suicide Risk (CSRS-screener) in the past one month Have you wished you were or wished you could go to sleep and not wake up?: No in the past one month Have y ou actually had any thoughts of killing yourself?: No Examination Category Sub-Category Detail Notes Category Not es Psychiatry Appearance: alert, groomed, appears well rested. In no acute distress Attitude: cooperative, open-mi nded with collaborative approach Psychomotor activity: within normal rang e Abnormal body movements: none noted Attention: normal in conversati on Degree of awareness of surroundings: wit hin normal limits Orientation: awake, alert and damon ented x 3 Affect / mood: full range, appropri ate Speech / language: clear and coherent, appropriate pitch/modulation, normal rate, volume, and articulation (RVR), proper grammar used Insight: good Judgement: good Thought process: intact Thought content: appropriate Suicidal ideation: none Homicidal ideation: none Intellectual functioning: no impairment noted Memory status: no impairment noted Delusions: no Hallucinations: no General Examination Mood: Reports ongoing anxiety but describes it as manageable. Mood is reported as good. Thought Content: Able to focus and accomplish more due to medication. Expresses feeling overwhelmed due to new business responsibilities. No disturbances in sleep reported, although mentions vivid dreams. Physical Examination: Blood pressure is documented as good. No specific physical examination findings are documented other than blood pressure.
--- OUTSIDE RECORDS SUMMARY | 2024-10-25 01:03 | XMS_ITS | Clinical Summary ---
Author Organization [facility] Address [address] [place] [address] Care Team Providers Care Funeral Car Driver Name Role Phone No, Physician Primary Care Provider Allergies No known active allergies Medications amLODIPine [...] 08/19/2022 Assessment & Plan (08/19/2022 1:27 PM [employer] EDUCATION [employer] DRIVER): Due to length of illness we will [...] Hypertension 10/24/2021 Anxiety disorder 10/24/2021 Depression 10/24/2021 Encounters Date Type Department Care Team Description 09/04/2024 5:15 PM [employer] EDUCATION [employer] DRIVER Office Visit [facility] at [address] [address] Joceline Renee NP Acute cough (Primary Dx) from Last 3 Months Family History Medical History Relation Name Comments Aneurysm Father Stroke Mother Relation Name Status Comments Father Mother Social History Tobacco Use Types Packs/Day Years Used Date Smoking Tobacco: Never Smokeless Tobacco: Never Sex and Gender Information Value Date Recorded Sex Assigned at Not on file Legal Sex Male 10:39 AM [employer] EDUCATION [employer] DRIVER Gender Identity Male 10/23/2021 7:19 PM [employer] EDUCATION [employer] DRIVER Sexual Orientation Straight 10/23/2021 7: 19 PM [employer] EDUCATION [employer] DRIVER Obstetrics History Last Filed Vital Signs Vital Sign Reading Time Taken Comments Blood Pressure 122/84 09/04/2024 5:27 PM [employer] EDUCATION [employer] DRIVER Pulse 77 09/04/2024 5:27 PM [employer] EDUCATION [employer] DRIVER Temperature 37 ??C (98.6 ??F) 09/04/2024 5:27 PM [employer] EDUCATION [employer] DRIVER Respiratory Rate 24 09/04/2024 5:27 PM [employer] EDUCATION [employer] DRIVER Oxygen Saturation 97% 09/04/2024 5:27 PM [employer] EDUCATION [employer] DRIVER Inhaled Oxygen Concentration - - Weight 100.2 kg (221 lb) 09/04/2024 5:27 PM SPECIAL EDUCATION BUS DRIVER Height 180.3 cm (5' 11 ) 10/16/2021 1:04 PM [employer] EDUCATION [employer] DRIVER Body Mass Index 30.82 10/16/2021 1:04 PM [employer] EDUCATION [employer] DRIVER Plan of Treatment Health Maintenance Due Date Last Done Comments Colon Cancer Screening-Colonoscopy 1978 Depression Screening 1978 Hepatitis C Screening 1978 DTaP/Tdap/Td Vaccine (1 - Tdap) 1989 Hepatitis B Screening 01/19/1996 Regular Well Visit/Exam 18-64 01/19/1996 Covid-19 Vaccine (2 - 2023-2 5 season) 2024 02/07/2021 Influenza Vaccine (#1) 2024 HPV Vaccines Aged Out No longer eligi ble based on patient's age to complete this topic Pneumococcal vaccine <65 Aged Out No longer eligible based on patient's age to complete this topic Procedures Procedure Name Priority Date/Time Associated Diagnosis Comments POC INFLUENZA A/B, COVID-19 ANTIGEN Routine 09/04/2024 5:52 PM [employer] EDUCATION [employer] DRIVER Acute cough from Last 3 Months Results * POC Influenza A/B, COVID-19 antigen (09/04/2024 5:52 PM SPECIAL EDUCATION BUS DRIVER) Influenza A Ag, POC Negative Negative [facility] Influenza B Ag, POC Negative Negative [facility] COVID-19 Ag POC Presumptive Negative Presumptive Negative, Invalid [facility] Nasal 09/04/2024 5:52 PM SPECIAL EDUCATION BUS DRIVER us Joceline Renee NP POINT OF CARE TEST ORDERABLES F inal Result Performing Organization Address City/State/[facility] Co de Phone Number [facility] [address] [place] [address], [facility] from Last 3 Months [facility] [place] [address] [employer] Care Teams Funeral Car Driver Relationship Specialty Start Date End Date No, Physician PCP - General 10/16/21
--- NOTE | 2024-10-25 07:55 | ED_ITS ---
HPI - SOB/Dyspnea General Chief Complaint: Shortness of Breath/Dyspnea Stated Complaint: UC diagnosed with PNA in early September Time Seen by Provider: 10/25/24 00:40 History of Present Illness HPI Narrative: 44-year-old male with a past medical history including recurrent pneumonia since August, treated with rounds of antibiotics and steroids. He finished his last course 2 weeks prior. States he feels like he is losing his voice again and still coughing. Denies any shortness a breath or chest pain, no lightheadedness or dizziness. No trauma or injuries. His cough is nonproductive, bothering him and causing him to lose his voice. Has not seen a primary care provider or spe cialist. Does not have a PCP and goes to urgent cares for his prescription medications. Related Data Allergies Allergy/AdvReac Type Severity Reaction Status Date / Time No Known Allergies Allergy Verified 10/24/24 20:05 Review of Systems Review of Systems: As reviewed above in HPI Exam Narrative: GENERAL: [Well-appearing, well-nourished, and in no acute distress.] HEAD: [Normocephalic, atraumatic.] EYES: [PERRLA and EOMI.] ENT: Nares clear, no rhinorrhea or epistaxis. Mucous membranes moist. No stridor NECK: Supple. CHEST: [Clear to auscultation. No respiratory distress.] HEART: [Regular rate and rhythm]. No murmur heard. [Normal peripheral pulses.] ABDOMEN: [Soft, nondistended], [nontender], [No rigidity or guarding] EXTREMITIES: Normal range of motion. [No edema.] SKIN: Warm, dry, no rash. NEURO: [No focal deficits]. Alert and oriented [x3.] PSYCH: [Normal mood and affect.] Course Vital Signs Vital signs: Vital Signs Temperature 37.2 C 10/24/24 20:01 Pulse Rate 74 10/24/24 20:01 Respiratory Rate 20 10/24/24 20:01 Blood Pressure 118/75 10/24/24 20:01 Pulse Oximetry 98 10/24/24 20:01 Temperature 37.2 C 10/24/24 20:01 Pulse Rate 75 10/25/24 00:48 Respiratory Rate 17 10/25/24 00:48 Blood Pressure 102/78 10/25/24 00:48 Pulse Oximetry 95 10/25/24 00:48 Oxygen Delivery Room Air 10/25/24 00:43 MDM - SOB/Dyspnea MDM Narrative Medical decision making narrative: 44-year-old male presenting to the emergency department for evaluation of now chronic cough since early August and associated with losing his voice. Patient believes he is going through another round of pneumonia, recently treated with antibiotics and steroids x2 with completed course 2 weeks prior. He has clear breath sounds, no accessory muscle use, no tachypnea. No stridor in his upper airways. No posterior oropharyngeal concerns. Normal vital signs with any tachycardia, fever, hypoxia blood pressure concerns. Chest x-ray was obtained without any signs of pneumonia. Negative COVID flu and RSV swabs. EKG obtained with any concerns. Normal sinus rhythm. I discussed with the patient his symptoms including chronic cough and potential laryngitis and the lack of any infectious symptoms or findings on his workup. He was thankful that he does not have a pneumonia and was referred to an research assistant professor for evaluation on outpatient basis as well as a PCP locally for establishing care. Patient is safe and stable for discharge at this time. Medical Records Attestation: I reviewed the patient's medical records. Lab Data Attestation: I reviewed the patient's lab results. Labs: Lab Results 10/24/24 Range/Units 20:20 Influenza A (RT-PCR) Negative (Negative) Influenza B (RT-PCR) Negative (Negative) RSV (RT-PCR) Negative (Negative) SARS-CoV-2 RNA (RT-PCR) Negative (Negative) Imaging Data Attestation: I personally reviewed and interpreted this imaging study as follows: My impression: Impressions Chest X-Ray 10/24/24 20:34 IMPRESSION: 1. No acute cardiopulmonary disease. Discharge Plan Discharge Clinical Impression: Chronic cough, Laryngitis Patient Disposition: Home, Self-Care Condition: Stable Instructions: Antibiotic Form, Chronic Cough (ED) Additional Instructions: Continue your treatments at home. Please call the referred your nose and throat specialist and primary care provider for appointments on a short-term basis. If you develop any worsening symptoms or any new concerns you can always come back for repeat evaluation otherwise follow-up with them on outpatient basis. Patient Language: Macedonian Follow-up/Referrals: Wilfredo Castellanos MD [Physician] - 1 Week (Chronic cough/laryngitis) Ricky Pineda MD [Physician] - 1 Week (Establish PCP) PHYSICIAN,SAMPLE PREPARATION SUPERVISOR [Primary Care Provider] - Time of Disposition: 01:42
== END 2024-10-25 02:00 | disposition home or self-care (01) ==
PROVIDERS: Emergency Provider Student in an Organized Health Care Education/Training Program
DX: J04.0 Acute laryngitis (principal); R05.3 Chronic cough; Z20.822 Contact with and (suspected) exposure to COVID-19
CPT/HCPCS: 71046; 87637; 93005; 99283